=== PATIENT | male | born 1970 | race Caucasian/White ===

== ENCOUNTER 2024-01-08 19:49 | Emergency (ER) | payer MEDICAID, OTHER ==
[~2024-01-08] VITALS: Ht 165.1 cm; Wt 80.0 kg
[2024-01-08 20:27] VITALS: TEMP 98; O2SAT 97
[2024-01-08 21:14] LABS: CLARITY URINE CLEAR (CLEAR); COLOR URINE YELLOW (YELLOW); GLUCOSE URINE 3+ (NEGATIVE); KETONES URINE NEGATIVE (NEGATIVE); LEUKOCYTE ESTERASE URINE NEGATIVE (NEGATIVE); NITRITE URINE NEGATIVE (NEGATIVE); OCCULT BLOOD URINE NEGATIVE (NEGATIVE); PH URINE 6.5 (4.5-8.0); PROTEIN URINE NEGATIVE (NEGATIVE); SPECIFIC GRAVITY URINE 1.033 (1.005-1.030); UROBILINOGEN URINE 0.2 E.U./dL (0.2-1.0)
[2024-01-08 21:37] LABS: CHLORIDE 97 mEq/L (98-107); POTASSIUM 4.9 mEq/L (3.5-5.1); SODIUM 130 mEq/L (136-145)
[2024-01-08 21:38] LABS: CALCIUM 9.6 mg/dL (8.7-10.4); CARBON DIOXIDE 30 mEq/L (21-32)
[2024-01-08 21:42] LABS: BASOPHILS % 0.3 % (0.0-2.0); EOSINOPHILS % 0.6 % (0.0-5.0); HEMATOCRIT. 37.8 % (42.0-52.0); HEMOGLOBIN. 12.9 g/dL (14.0-18.0); LYMPHOCYTES % 18.7 % (20.0-50.0); MEAN CORPUSCULAR HEMOGLOBIN 28.9 pg (28.0-32.0); MEAN PLATELET VOLUME 6.9 fl (7.4-10.4); MONOCYTES % 6.5 % (2.0-8.0); NEUTROPHILS % 73.9 % (40.0-76.0); PLATELET 384 x1000/uL (130-400); RED BLOOD CELL COUNT 4.45 mill/uL (4.7-6.1); RED CELL DISTRIBUTION WIDTH 13.2 % (11.6-14.6); WHITE BLOOD COUNT 9.1 x1000/uL (4.5-11.0)
[2024-01-08 21:43] LABS: CREATININE 0.8 mg/dL (0.6-1.3); UREA NITROGEN BLOOD 9 mg/dL (9-23)
[2024-01-08 21:45] LABS: ALANINE AMINOTRANSFERASE 8 IU/L (10-49); ALBUMIN 4.5 g/dL (3.2-4.8); ASPARTATE AMINOTRANSFERASE 11 IU/L (<34); BILIRUBIN DIRECT 0.1 mg/dL (<=3.0)
[2024-01-08 21:46] LABS: BILIRUBIN TOTAL 0.4 mg/dL (0.1-1.0); PROTEIN TOTAL 8.3 g/dL (6.0-8.3)
[2024-01-08 21:50] LABS: INR 0.9; PARTIAL THROMBOPLASTIN TIME 26.7 sec (23.4-31.0); PROTHROMBIN TIME 10.6 sec (9.6-11.0)
[2024-01-08 21:51] LABS: GLUCOSE 384 mg/dL (70-105); TROPONIN I HIGH SENSITIVITY < 4 ng/L (3.0-53)
[2024-01-08 21:51] LABS: BACTERIA URINE TRACE; RBC URINE NONE SEEN /hpf (0-2); SQUAMOUS EPITHELIAL CELL URINE FEW /lpf (RARE/1+); WBC URINE 0-2 /hpf (0-2)
[2024-01-08] MEDS ORDERED: IBUP-2028 MT (23:40)
[2024-01-09 00:12] VITALS: BP 148/96; PULSE 80; RESP 18
== END 2024-01-09 00:13 | disposition home or self-care (01) ==
LOC: ER 19:49
DX: I82.611 Acute embolism and thrombosis of superficial veins of right upper extremity (principal); R51.9 Headache, unspecified
CPT/HCPCS: 36415; 71045; 80048; 80076; 81003; 83880; 84484; 85025; 93005; 93971; 99285

== ENCOUNTER 2024-02-10 13:00 | Emergency (ER) | payer MEDICAID ==
[~2024-02-10] VITALS: Ht 167.6 cm; Wt 77.1 kg
[~2024-02-10 13:00] MED LIST: IBUP-2028 MT
[2024-02-10 13:12] VITALS: O2SAT 99
[2024-02-10 15:56] LABS: BASOPHILS % 0.3 % (0.0-2.0); EOSINOPHILS % 1.1 % (0.0-5.0); HEMATOCRIT. 39.6 % (42.0-52.0); HEMOGLOBIN. 13.3 g/dL (14.0-18.0); LYMPHOCYTES % 32.2 % (20.0-50.0); MEAN CORPUSCULAR HEMOGLOBIN 27.9 pg (28.0-32.0); MEAN CORPUSCULAR HGB CONC 33.6 g/dL (31.0-37.0); MEAN PLATELET VOLUME 7.7 fl (7.4-10.4); MONOCYTES % 5.3 % (2.0-8.0); NEUTROPHILS % 61.1 % (40.0-76.0); PLATELET 236 x1000/uL (130-400); RED BLOOD CELL COUNT 4.77 mill/uL (4.7-6.1); WHITE BLOOD COUNT 4.7 x1000/uL (4.5-11.0)
[2024-02-10 16:02] LABS: CHLORIDE 102 mEq/L (98-107); POTASSIUM 4.5 mEq/L (3.5-5.1); SODIUM 136 mEq/L (136-145)
[2024-02-10 16:03] LABS: CALCIUM 9.4 mg/dL (8.7-10.4); CARBON DIOXIDE 30 mEq/L (21-32)
[2024-02-10 16:08] LABS: UREA NITROGEN BLOOD 12 mg/dL (9-23)
[2024-02-10 16:18] LABS: GLUCOSE 428 mg/dL (70-105)
[2024-02-10 16:38] LABS: ERYTHROCYTE SEDIMENTATION RATE 16 mm/hr (0-20)
[2024-02-10] MEDS ORDERED: DOXY100T2 MT (17:52)
[2024-02-10 18:11] VITALS: BP 114/63; PULSE 87; RESP 16; TEMP 36.78072; O2SAT 99
== END 2024-02-10 18:12 | disposition home or self-care (01) ==
LOC: ER 13:00
DX: M86.672 Other chronic osteomyelitis, left ankle and foot (principal); E11.9 Type 2 diabetes mellitus without complications
CPT/HCPCS: 36415; 73630; 80048; 85025; 85651; 99284